=== PATIENT | male | born 1985 ===

== ENCOUNTER 2025-03-04 14:39 | Emergency (ER) | payer OTHER ==
[~2025-03-04] VITALS: Ht 165.1 cm; Wt 77.1 kg
[2025-03-04] MEDS ORDERED: [UNRECOGNIZED DRUG - OTHER] (15:57)
[2025-03-04] MEDS ORDERED: Acetaminophen 325 MG TABLET PO ONE (17:35)
[2025-03-04] MEDS ORDERED: Ketorolac Tromethamine 15mg Vial IV ONE (19:30)
== END 2025-03-04 19:53 | disposition home or self-care (01) ==
LOC: ER 14:39
DX: S16.1XXA Strain of muscle, fascia and tendon at neck level, initial encounter (principal); S13.9XXA Sprain of joints and ligaments of unspecified parts of neck, initial encounter; R10.13 Epigastric pain; V49.49XA Driver injured in collision with other motor vehicles in traffic accident, initial encounter
CPT/HCPCS: 70450; 71046; 74177; 96374-59; 99284-25; A9270; J1885; Q9967